=== PATIENT | male | born 1980 | race Caucasian/White ===

== ENCOUNTER → 2022-05-18 | Outpatient (CLI) | payer OTHER | LOC: RAD 11:13 | DX: N43.3 Hydrocele, unspecified (principal); I86.1 Scrotal varices ==

== ENCOUNTER → 2022-06-08 | Outpatient (CLI) | payer OTHER | LOC: RAD 10:47 | DX: N45.2 Orchitis (principal) ==

== ENCOUNTER → 2022-06-25 | Outpatient (CLI) | payer OTHER ==
[2022-06-25 11:06] LABS: BASO # 0.03 K/mm3 (0.02-0.10); EOS % 1.8 % (0.0-4.0); HEMATOCRIT 46.4 % (42.0-52.0); HEMOGLOBIN 15.6 g/dL (13.5-18.0); LYMPH# 1.84 K/mm3 (1.50-4.00); MEAN CELL VOLUME 87 fl (78-100); MEAN CORPUSCULAR HEMOGLOBIN 29 pg (27-31); MEAN CORPUSCULAR HGB CONC 34 g/dL (33-37); MEAN PLATELET VOLUME 8.8 fl (7.4-10.4); MONO # 0.35 K/mm3 (0.20-0.80); NEU # 3.12 K/mm3 (1.40-6.50); PLATELET COUNT 285 K/mm3 (130-400); RED BLOOD COUNT 5.33 M/mm3 (4.20-5.60); RED CELL DISTRIBUTION WIDTH 11.7 % (11.5-14.5); WHITE BLOOD COUNT 5.4 K/mm3 (4.8-10.8)
[2022-06-25 11:28] LABS: ALBUMIN 4.8 g/dL (3.5-5.0); POTASSIUM 4.7 mmol/L (3.5-5.1); SODIUM 139 mmol/L (136-145)
[2022-06-25 11:29] LABS: CALCIUM 10.1 mg/dL (8.3-10.5)
[2022-06-25 11:30] LABS: GLUCOSE 110 mg/dL (75-110); TOTAL PROTEIN 8.2 g/dL (6.4-8.3)
[2022-06-25 11:31] LABS: CARBON DIOXIDE 26 mmol/L (22-29)
[2022-06-25 11:32] LABS: TOTAL BILIRUBIN 0.6 mg/dL (0.2-1.2)
[2022-06-25 11:36] LABS: AST-SGOT 32 U/L (5-34)
[2022-06-25 11:37] LABS: ALT/SGPT 30 U/L (0-55)
[2022-06-25 12:13] LABS: D-DIMER 0.25 mg/L FEU (0.15-0.50)
[2022-06-25 12:42] LABS: ERYTHROCYTE SEDIMENTATION RATE 2 mm/hr (0-15)
== END ==
LOC: LAB 10:22
PROVIDERS: Internal Medicine
DX: C62.91 Malignant neoplasm of right testis, unspecified whether descended or undescended (principal); R06.00 Dyspnea, unspecified

== ENCOUNTER → 2022-09-28 | Outpatient (CLI) | payer BC ==
[2022-09-28 16:41] LABS: HEMATOCRIT 38.9 % (42.0-52.0); HEMOGLOBIN 13.5 g/dL (13.5-18.0); MEAN CELL VOLUME 88 fl (78-100); MEAN CORPUSCULAR HEMOGLOBIN 31 pg (27-31); MEAN CORPUSCULAR HGB CONC 35 g/dL (33-37); MEAN PLATELET VOLUME 8.5 fl (7.4-10.4); PLATELET COUNT 237 K/mm3 (130-400); RED BLOOD COUNT 4.41 M/mm3 (4.20-5.60); RED CELL DISTRIBUTION WIDTH 11.7 % (11.5-14.5); WHITE BLOOD COUNT 8.2 K/mm3 (4.8-10.8)
[2022-09-28 16:59] LABS: ALBUMIN 4.5 g/dL (3.5-5.0); POTASSIUM 3.7 mmol/L (3.5-5.1); SODIUM 139 mmol/L (136-145)
[2022-09-28 17:00] LABS: CALCIUM 10.3 mg/dL (8.3-10.5)
[2022-09-28 17:01] LABS: GLUCOSE 105 mg/dL (75-110); TOTAL PROTEIN 7.6 g/dL (6.4-8.3)
[2022-09-28 17:03] LABS: CARBON DIOXIDE 25 mmol/L (22-29); TOTAL BILIRUBIN 0.4 mg/dL (0.2-1.2)
[2022-09-28 17:07] LABS: AST-SGOT 31 U/L (5-34)
[2022-09-28 17:08] LABS: ALT/SGPT 24 U/L (0-55)
[2022-09-28 18:08] LABS: BAND 7 % (0-10); LYMPHOCYTE 27 % (20-51); MONOCYTE 15 % (3-10); NEUTROPHILS 49 % (42-75)
[2022-09-28 18:09] LABS: TEAR DROP CELLS 1+
== END ==
LOC: LAB 16:20
PROVIDERS: Internal Medicine
DX: C62.11 Malignant neoplasm of descended right testis (principal)

== ENCOUNTER → 2022-12-04 | Outpatient (CLI) | payer BC ==
[2022-12-04 12:58] LABS: BASO # 0.03 K/mm3 (0.02-0.10); EOS # 0.23 K/mm3 (0.04-0.40); EOS % 3.2 % (0.0-4.0); HEMATOCRIT 42.7 % (42.0-52.0); HEMOGLOBIN 14.5 g/dL (13.5-18.0); LYMPH# 1.69 K/mm3 (1.50-4.00); MEAN CELL VOLUME 89 fl (78-100); MEAN CORPUSCULAR HEMOGLOBIN 30 pg (27-31); MEAN CORPUSCULAR HGB CONC 34 g/dL (33-37); MEAN PLATELET VOLUME 8.7 fl (7.4-10.4); MONO # 0.84 K/mm3 (0.20-0.80); NEU # 4.33 K/mm3 (1.40-6.50); PLATELET COUNT 234 K/mm3 (130-400); RED BLOOD COUNT 4.81 M/mm3 (4.20-5.60); RED CELL DISTRIBUTION WIDTH 11.7 % (11.5-14.5); WHITE BLOOD COUNT 7.1 K/mm3 (4.8-10.8)
[2022-12-04 13:12] LABS: ALBUMIN 4.7 g/dL (3.5-5.0); SODIUM 140 mmol/L (136-145)
[2022-12-04 13:13] LABS: CALCIUM 9.9 mg/dL (8.3-10.5)
[2022-12-04 13:15] LABS: GLUCOSE 99 mg/dL (75-110)
[2022-12-04 13:16] LABS: CARBON DIOXIDE 27 mmol/L (22-29)
[2022-12-04 13:17] LABS: TOTAL BILIRUBIN 0.6 mg/dL (0.2-1.2)
[2022-12-04 13:20] LABS: AST-SGOT 30 U/L (5-34)
[2022-12-04 13:21] LABS: ALT/SGPT 29 U/L (0-55)
[2022-12-04 13:39] LABS: TROPONIN-I < 0.030 ng/mL (<0.030)
[2022-12-04 14:09] LABS: D-DIMER 0.16 mg/L FEU (0.15-0.50)
== END ==
LOC: RAD 12:26 → LAB 12:26
PROVIDERS: Nurse Practitioner Family
DX: U09.9 Post COVID-19 condition, unspecified (principal)

== ENCOUNTER → 2022-12-21 | Outpatient (CLI) | payer BC ==
--- NOTE | 2022-12-21 17:44 | NUR ---
EKG and strip given to JORGITO Morgan. This nurse printed past EKG per JORGITO Morgan's request. No further orders.
== END ==
LOC: LAB 16:03
DX: R07.9 Chest pain, unspecified (principal)

== ENCOUNTER → 2023-03-20 | Outpatient (CLI) | payer BC | LOC: LAB 08:49 | DX: E07.89 Other specified disorders of thyroid (principal) ==

== ENCOUNTER → 2023-08-06 | Outpatient (CLI) | payer BC ==
[2023-08-06 17:16] LABS: ALBUMIN 4.3 g/dL (3.5-5.0); POTASSIUM 3.6 mmol/L (3.5-5.1); SODIUM 139 mmol/L (136-145)
[2023-08-06 17:17] LABS: BASO # 0.04 K/mm3 (0.02-0.10); CALCIUM 9.5 mg/dL (8.3-10.5); EOS # 0.17 K/mm3 (0.04-0.40); EOS % 2.8 % (0.0-4.0); HEMATOCRIT 38.8 % (42.0-52.0); HEMOGLOBIN 13.3 g/dL (13.5-18.0); LYMPH# 1.91 K/mm3 (1.50-4.00); MEAN CELL VOLUME 89 fl (78-100); MEAN CORPUSCULAR HEMOGLOBIN 30 pg (27-31); MEAN CORPUSCULAR HGB CONC 34 g/dL (33-37); MEAN PLATELET VOLUME 8.7 fl (7.4-10.4); MONO # 0.37 K/mm3 (0.20-0.80); NEU # 3.49 K/mm3 (1.40-6.50); PLATELET COUNT 244 K/mm3 (130-400); RED BLOOD COUNT 4.38 M/mm3 (4.20-5.60); RED CELL DISTRIBUTION WIDTH 11.6 % (11.5-14.5)
[2023-08-06 17:19] LABS: GLUCOSE 129 mg/dL (75-110); TOTAL PROTEIN 7.3 g/dL (6.4-8.3)
[2023-08-06 17:20] LABS: CARBON DIOXIDE 22 mmol/L (22-29)
[2023-08-06 17:21] LABS: TOTAL BILIRUBIN 0.3 mg/dL (0.2-1.2)
[2023-08-06 17:24] LABS: AST-SGOT 28 U/L (5-34)
[2023-08-06 17:25] LABS: ALT/SGPT 22 U/L (0-55)
== END ==
LOC: LAB 16:38
PROVIDERS: Nurse Practitioner Family
DX: Z04.9 Encounter for examination and observation for unspecified reason (principal)